=== PATIENT | male | born 1960 | race Caucasian/White ===

== ENCOUNTER → 2022-03-05 | Outpatient (CLI) | payer BC, OTHER ==
[~2022-03-05] MED LIST: CPR500T PO; HYOS0.1216 PO; PHEN200T27 PO
--- NOTE | 2022-03-05 15:46 | Diagnostic Imaging Report ---
EXAMINATION: CT abdomen and pelvis without contrast. TECHNIQUE: Multiple contiguous axial images were obtained through the abdomen and pelvis without the use of intravenous contrast. All CT scans use one or more of the following dose optimizing techniques: automated exposure control, MA and/or KvP adjustment based on patient size and exam type or iterative reconstruction. HISTORY: Renal stones COMPARISON: 11/12/2013 FINDINGS: Limited views of the lower thorax are unremarkable. There are simple cysts in liver. No suspicious liver lesions. There is no biliary ductal dilation. Gallbladder is normal. Pancreas is normal. Spleen is normal. Adrenal glands are normal. There are nonobstructing stones in both kidneys measuring up to 4 mm. There is a simple cyst in the left kidney. No suspicious renal lesions. There is mild left-sided hydroureter. There is an 8 mm stone in the distal left ureter with a second 2 mm stone more distally. Urinary bladder is normal. Bowel is normal in caliber without obstruction or inflammation. No free fluid or air. No abdominal or pelvic lymphadenopathy. Aorta is normal in caliber without aneurysm. There are no suspicious osseus lesions. IMPRESSION: 1. Mild left hydroureter with a stone in the distal ureter measuring 8 mm and a more distal stone measuring 2 mm. Dictated by: Dictated on workstation # [id number]
== END ==
LOC: RAD 15:18
PROVIDERS: ATTEND Nurse Practitioner Family
DX: N20.2 Calculus of kidney with calculus of ureter (principal)
CPT/HCPCS: 74176